=== PATIENT | female | born 1945 | race Caucasian/White ===

== ENCOUNTER 2024-07-28 15:29 | Emergency (ER) | payer MEDICARE ==
[~2024-07-28 15:29] MED LIST: Iopamidol 370 76% 100 ML VIAL ONE
[2024-07-28 16:51] LABS: ALT (SGPT) 25 U/L (Less than 34); AST (SGOT) 31 U/L (11-34); Albumin 1.9 g/dL (3.1-4.5); Alkaline Phosphatase 123 U/L (40-110); Anion Gap 14 mmol/L (10-20); BUN (Urea Nitrogen) 8 mg/dL (9.8-20.1); Bilirubin, Total 0.5 mg/dL (0.3-1.2); Calc. Creatinine Clearance 0 mL/min (70-130); Calcium 7.4 mg/dL (7.8-10.44); Carbon Dioxide 27 mmol/L (23-31); Chloride 100 mmol/L (98-107); Estimated GFR 93; Globulin 3.1 g/dL (2.4-3.5); Glucose 103 mg/dL (83-110); Lipase 22 U/L (8-78); Magnesium 1.7 mg/dL (1.6-2.6); Potassium 3.1 mmol/L (3.5-5.1); Sodium 138 mmol/L (136-145); Troponin I 0.015 ng/mL (< 0.028)
[2024-07-28 16:52] LABS: Hematocrit 33.1 % (36.0-47.0); Hemoglobin 11.4 g/dL (12.0-16.0); Mean Corpuscular HGB CONC 34.4 g/dL (32.0-36.0); Mean Corpuscular Hemoglobin 32.3 pg (27.0-31.0); Mean Corpuscular Volume 93.9 fl (78.0-98.0); Mean Platelet Volume 4.5 fL (7.4-10.4); Platelet Count 427 10x3/uL (130-400); RBC Distribution Width 15.8 % (11.5-14.5); Red Blood Cell (RBC) Count 3.53 mill/uL (4.20-5.40); White Blood Cell (WBC) Count 9.5 10x3/uL (4.8-10.8)
[2024-07-28 17:06] LABS: MDiff Complete? YES
[2024-07-28] MEDS ORDERED: Sodium Chloride 0.9% 500 ML ONE (17:28)
[2024-07-28] MEDS ORDERED: Acetaminophen 500 MG TAB ONE (17:54)
[2024-07-28 18:21] LABS: Bilirubin Negative (Negative); Blood, Urine Trace (Negative); Clarity Clear (Clear); Glucose, Urine (Dipstick) Negative (Negative); Ketone, Urine Negative (Negative); Leukocyte Trace (Negative); Nitrite Negative (Negative); Protein, Urine (Dipstick) Negative (Neg-Trace)
[2024-07-28] MEDS ORDERED: Calcium Carbonate 500 MG ChewTAB ONE (18:28)
[2024-07-28] MEDS ORDERED: Potassium Chloride 20 MEQ TAB ONE (18:28)
[2024-07-28 18:45] LABS: Bacteria/HPF 2+ HPF (None Seen); CAUTI Indications for Culture Dysuria,urgency,freq; RBC/HPF 0-3 HPF (0-3); Squamous Epithelial 0-3 HPF (0-3)
[2024-07-28 18:47] LABS: Urine Culture Reflex No No
[2024-07-28 22:06] LABS: Lymphocytes 22 % (21-51)
[2024-07-28 22:07] LABS: Monocytes 4 % (0-10); Neutrophil 74 % (42-75)
[2024-07-28 22:08] LABS: Platelet Adequacy Comment Appears Increased
== END 2024-07-28 19:26 ==
LOC: NAV ERS 15:29
DX: K56.41 Fecal impaction (principal); N30.90 Cystitis, unspecified without hematuria; E83.51 Hypocalcemia; E87.6 Hypokalemia; I10 Essential (primary) hypertension; I48.91 Unspecified atrial fibrillation
CPT/HCPCS: 74177; 80053; 81001; 83690; 83735; 83880; 84484; 85025; 93005; J7030; Q9967; 96360